=== PATIENT | male | born 1995 | race Caucasian/White ===

== ENCOUNTER 2024-03-08 16:55 | Emergency (ER) | payer MEDICARE, MEDICAID, SELFPAY ==
[2024-03-08 17:08] VITALS: BP 122/80; BP 149/99; PULSE 100; PULSE 79; RESP 24; TEMP 37; O2SAT 100; O2SAT 99; BMI 21.0
--- NOTE | 2024-03-08 17:13 | ECG_ITS ---
Test Reason : SEIZURE Blood Pressure : / mmHG Vent. Rate : 077 BPM Atrial Rate : 077 BPM P-R Int : 132 ms QRS Dur : 110 ms QT Int : 350 ms P-R-T Axes : 075 086 070 degrees QTc Int : 396 ms Normal sinus rhythm with sinus arrhythmia Normal ECG No previous ECGs available Referred By: Jenna Montes De Oca Electronically Signed By:THERESE BROCK MD
--- NOTE | 2024-03-08 17:14 | ED.GENADULT ---
HPI - General Adult General Chief complaint: Seizure Stated complaint: wit seizures from [facility] Time Seen by Provider: 03/08/24 17:13 History of Present Illness HPI narrative: 28 y/o M patient; PMH epilepsy on Keppra, Lamotrigine, and Buspirone; presents as transfer from [facility] with report of witnessed generalized seizure activity. The patient states he has had seizures since he was an . He reports he has not taken his medications for the last one week due to increased depression. His last seizure was yesterday and he was taken to a hospital who gave him his yesterday morning dose of medications but after his discharge he did not take his medications again. He arrives with full bottles of his medications in his possession. He denies any active suicidal or homicidal ideation. He reports for the last one week he has been using every drug you can think of but denies ever using IV drugs. Related Data Allergies Allergy/AdvReac Type Severity Reaction Status Date / Time No Known Allergies Allergy Verified 03/08/24 17:09 Review of Systems Review of Systems: Yes all other systems are reviewed and are negative Neurologic: Denies Sensory deficit (Neuro) [facility] Past Medical History Attestation statement: The following information was validated with the patient. Source: unable to obtain Social History Social History Advance Directives: No Advance Directives Information Provided: Yes Do you have a plan to hurt others: No Plan Physical Exam ED Vital Signs: Vital Signs - 24 hr 03/08/24 17:08 03/08/24 18:12 Temperature 98.6 F Pulse Rate 100 75 Respiratory Rate 24 H 16 Blood Pressure 149/99 H 119/75 Pulse Oximetry 100 99 Oxygen Delivery Method Room Air BMI result Body Mass Index 21.0 Patient is afebrile and hemodynamically stable, mildly tachypnic. Const General: cooperative, comfortable and no acute distress Orientation/consciousness: patient oriented x3 HENMT Head: Yes normal to inspection and Yes atraumatic Eyes General: appearance normal, both eyes and all related structures Pupils: Equal, round and reactive pupils present Neck Neck: Yes normal visual inspection, Yes full ROM, Yes supple and No tender Chest Chest palpation & inspection: normal inspection of the chest and normal palpation of entire chest wall Resp Effort & Inspection: normal respiratory effort, able to speak in complete sentences and no respiratory distress Auscultation: clear to auscultation bilaterally Cardio Rate: regular rate Rhythm: regular rhythm Peripheral pulses: Peripheral pulses 2+ throughout GI Inspection: Yes normal to inspection Palpation (GI): Soft to palpation, not firm, nontender, no guarding and not rigid Auscultation: normal bowel sounds Neuro General: patient oriented x3 Cranial nerves: Yes CN's II-XII intact bilaterally and Yes Equal, round and reactive pupils present Cognition (Neuro): normal cognition Gait exam (Neuro): Normal gait present Motor exam (neuro): 5/5 motor strength present throughout Sensory Exam: No Sensory deficit (Neuro) Course Course Course Narrative: Patient is afebrile and hemodynamically stable. Will plan for a period of observation. Provided home medications. Glucose appropriate. Observed for 2 hours without further seizure activity. Plan: Discharge back to [facility] Condition: Stable Medications Administered Discontinued Medications Generic Name Dose Route Start Last Admin Trade Name Freq PRN Reason Stop Dose Admin Buspirone HCl 10 mg 03/08/24 17:18 03/08/24 17:24 Buspirone Hcl 10 Mg Tablet PO 03/08/24 17:19 10 mg ONCE ONE Administration Lamotrigine 400 mg 03/08/24 17:18 03/08/24 17:24 Lamotrigine 100 Mg Tablet PO 03/08/24 17:19 400 mg ONCE ONE Administration Levetiracetam 1,000 mg 03/08/24 17:18 03/08/24 17:24 Levetiracetam 1,000 Mg Tablet PO 03/08/24 17:19 1,000 mg ONCE ONE Administration Medical Decision Making Lab Data Labs: Lab Results 03/08/24 Range/Units 17:18 POC Glucose 117 H (60-115) mg/dL Independent Interpretation I performed an independent interpretation of an: EKG Interpretation: NSR 77BPM without ischemic changes, QRS 110. No prior for comparison. Discharge Plan Discharge Clinical Impression: Epileptic seizure Patient Disposition: Xfer Other Transfer Details: [facility] Instructions: Epilepsy (DC) Additional Instructions: As we discussed, you were seen today after a seizure that occurred as you had not taken your seizure medications in the last 1 week. We gave you a dose of your seizure medications tonight and you should start taking them as prescribed starting tomorrow morning (03/09/2024). Follow up with your PCP within the next 2 - 3 days for re-evaluation. Print Language: [place] Citizen
[2024-03-08 17:22] LABS: Glucose, Whole Blood 117 mg/dL (60-115)
[2024-03-08] MEDS: levETIRAcetam 1,000 MG TABLET 1000 MG PO (17:24)
[2024-03-08] MEDS: busPIRone HCl 10 MG TABLET PO (17:24)
[2024-03-08] MEDS: lamoTRIgine 100 MG TABLET 400 MG PO (17:24)
[2024-03-08 18:12] VITALS: BP 119/75; PULSE 75; RESP 16; O2SAT 99
[2024-03-08 19:11] VITALS: BP 116/77; PULSE 66; RESP 16; TEMP 37.1; O2SAT 99
--- NOTE | 2024-03-08 19:15 | PC.NURSE ---
this rn assumed care of pt, pt resting in stretcher no acute distress noted. report given to bill RN, this rn noted pt to not come with section papers, attempted to reach someone from [facility] to get it faxed, unable to do this at this time.
--- NOTE | 2024-03-08 19:33 | MHC.EDTECH ---
No sect. 21 found in pt's chart to go back to [facility]. RN called to give report but was told they would not be able to fax the section. I called the supervisor telephone information at [facility] @[phone] and she informed me that she will send over the section 21.
--- NOTE | 2024-03-08 20:30 | PC.NURSE ---
ems at bedside for transport back to [facility]. pt medications given to ems.
[2024-03-08 20:31] VITALS: BP 116/77; PULSE 66; RESP 16; TEMP 37.1; O2SAT 99
== END 2024-03-08 20:31 | disposition other institution (70) ==
PROVIDERS: Emergency Provider Emergency Medicine
DX: G40.909 Epilepsy, unspecified, not intractable, without status epilepticus (principal)
CPT/HCPCS: 82947; 93005; 99283; 99284

== ENCOUNTER → 2024-03-08 17:13 | Outpatient (BNV) | payer MEDICARE, SELFPAY | PROVIDERS: Emergency Provider Emergency Medicine; Visit Provider Internal Medicine Cardiovascular Disease | DX: R56.9 Unspecified convulsions (principal); R94.31 Abnormal electrocardiogram [ECG] [EKG] | CPT/HCPCS: 93010 ==

== ENCOUNTER 2024-03-09 02:25 | Emergency (ER) | payer OTHER, MEDICARE, SELFPAY ==
[2024-03-09 02:38] VITALS: BP 134/98; PULSE 83
[2024-03-09 02:40] VITALS: BP 127/83; PULSE 78; RESP 16; TEMP 36.9; O2SAT 98; BMI 19.9
--- NOTE | 2024-03-09 02:54 | ECG_ITS ---
Test Reason : SEIZURES Blood Pressure : / mmHG Vent. Rate : 082 BPM Atrial Rate : 082 BPM P-R Int : 138 ms QRS Dur : 100 ms QT Int : 350 ms P-R-T Axes : 081 093 071 degrees QTc Int : 408 ms Normal sinus rhythm Rightward axis Borderline ECG When compared with ECG of 08-MAR-2024 17:26, ST no longer elevated in Anterior leads Nonspecific T wave abnormality no longer evident in Anterior leads Referred By: Georgie Winters Electronically Signed By:THERESE BROCK MD
[2024-03-09] MEDS: 0.9 % Sodium Chloride 1,000 ML 999 ML IVCONT (03:18)
[2024-03-09 03:20] LABS: MANUAL DIFF FLAG NO
[2024-03-09 03:27] LABS: Basophils Percent Auto 0.6 % (0-2); Eosinophils Absolute Auto 0.1 X10*3/uL (0.0-0.4); Eosinophils Percent Auto 1.4 % (0-4); Hematocrit 38.6 % (42.0-52.0); Hemoglobin 13.3 g/dl (14.0-18.0); Imm Gran Abs Auto 0.02 X10*3/uL (0.00-0.03); Imm Gran Pct Auto 0.4 % (0.0-0.4); Lymphocytes Absolute Auto 1.2 X10*3/uL (1.2-4.9); Lymphocytes Percent Auto 24.1 % (20-40); Mean Corpuscular HGB Conc 34.5 g/dl (31.0-36.0); Mean Corpuscular Hemoglobin 30.1 pg (27.0-33.0); Mean Corpuscular Volume 87.3 fL (80.0-98.0); Mean Platelet Volume 10.9 fL (9.4-12.4); Monocytes Absolute Auto 0.4 X10*3/uL (0.1-1.2); Monocytes Percent Auto 7.8 % (2-11); Neutrophils Absolute Auto 3.2 x10*3/uL (2.0-8.3); Neutrophils Percent Auto 65.7 % (45-73); Platelet Count 145 X10*3/uL (160-400); Red Blood Count 4.42 X10*6/uL (4.60-5.80); Red Cell Distribution Width 12.1 % (11.0-16.0); White Blood Count 4.9 X10*3/uL (4.8-10.8)
[2024-03-09 03:33] LABS: INTERNATIONAL NORM RATIO 1.2 (0.9-1.1); Prothrombin Time 14.5 SEC (11.1-13.3)
[2024-03-09 03:36] LABS: Lactic Acid 0.9 mmol/L (0.5-2.0)
[2024-03-09 03:46] LABS: Alanine Aminotransferase 20 U/L (0-40); Albumin Level 3.8 g/dL (3.5-5.0); Alkaline Phosphatase 61 U/L (39-117); Anion Gap 11 (12-20); Aspartate Amino Transferase 23 U/L (5-37); Bilirubin Direct < 0.2 mg/dL (0.0-0.5); Bilirubin Total 0.2 mg/dL (0.0-1.0); Blood Urea Nitrogen 12 mg/dL (9-16); Calcium 8.8 mg/dL (8.4-10.2); Carbon Dioxide 24 mmol/L (22-29); Chloride 112 mmol/L (96-108); Creatinine Clr Calc Pharmacy 107.8; Estimated Glomerular Filt Rate > 60; Ethanol < 10 mg/dL; Glucose Random 102 mg/dL (60-115); Magnesium 1.9 mg/dL (1.6-2.6); Potassium 3.5 mmol/L (3.3-5.1); Sodium 143 mmol/L (135-145); Total Protein 6.6 g/dL (6.5-8.0); Troponin-I High Sensitivity < 2.7 ng/L (<3.5-35.0)
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
[2024-03-09] MEDS: levETIRAcetam in NaCl (iso-os) 1,500 MG/100 ML PIGGYBACK 400 MG IV (04:27)
--- NOTE | 2024-03-09 04:35 | MHC.EDTECH ---
@04:34 CALL PLACED TO [facility] FOR TX BACK TO [facility] [address] [place] ANSWERS, TAKES PT INFO AND GIVES 1 HOUR ETA
--- NOTE | 2024-03-09 05:41 | MHC.EDTECH ---
@ 5:42 CALL PLACED TO [facility] THE 1 HOUR JEANA HAS PASSED FOR THE LAWN SERVICE WORKER OF THIS PT SHANTI ANSWERS, STATES WAITING FOR A UNIT TO CLEAR UP @ THIS TIME
--- NOTE | 2024-03-09 06:29 | MHC.EDTECH ---
@9858 3RD CALL PLACED TO [facility] TO CHECK ON ETA FOR THIS PT TO GO BACK TO INPT PSYCH FAC[facility] ON [address] [place] ANSWERS, STATES JUST ABOUT TO DISPATCH THEM OUT
[2024-03-09 06:45] VITALS: BP 127/83; PULSE 78; RESP 14; TEMP 36.9; O2SAT 98
== END 2024-03-09 06:53 ==
PROVIDERS: Emergency Provider Emergency Medicine
DX: R56.9 Unspecified convulsions (principal)
CPT/HCPCS: 36415; 80048; 80076; 80307; 83605; 83735; 84484; 85025; 85610; 93005; 96361; 96365; 99284; 99285; J1953

== ENCOUNTER → 2024-03-09 02:54 | Outpatient (BNV) | payer MEDICARE, SELFPAY | PROVIDERS: Emergency Provider Emergency Medicine; Visit Provider Internal Medicine Cardiovascular Disease | DX: R56.9 Unspecified convulsions (principal); R94.31 Abnormal electrocardiogram [ECG] [EKG] | CPT/HCPCS: 93010 ==

== ENCOUNTER 2024-06-13 00:44 | Inpatient (IN) | payer MEDICARE, OTHER, MEDICAID, SELFPAY ==
--- NOTE | ~2024-06-13 | XR_ITS ---
EXAMINATION: XR HAND/WRIST, RIGHT CLINICAL INFORMATION: Acute trauma to the third finger COMPARISON: None TECHNIQUE: PA, lateral, and oblique views of the right hand and wrist. FINDINGS: No evidence of acute fractures in the second finger. There is healed fracture deformity of the base of the fourth and fifth metatarsal carpal bones of indeterminate age. Soft tissues unremarkable. XR/XR hand wrist RT IMPRESSION: No acute fractures seen specifically in the third finger on the right
[2024-06-13 02:13] VITALS: BP 138/100; PULSE 107; RESP 18; TEMP 36.7; O2SAT 98
[2024-06-13 02:14] VITALS: BMI 21.0
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
[2024-06-13] MEDS: Nicotine Polacrilex 2 MG GUM BUCCAL ×2 (06:42→07:59)
[2024-06-13] MEDS: hydrOXYzine HCL 25 MG TABLET PO (07:59)
[2024-06-13 08:00] VITALS: BP 133/94; PULSE 94; RESP 19; TEMP 36.6; O2SAT 98
[2024-06-13] MEDS: Acetaminophen 325 MG TABLET 650 MG PO (08:47)
[2024-06-13] MEDS: OLANZapine ODT 10 MG TAB.RAPDIS TRANSLINGU (08:48)
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
[2024-06-13] MEDS: Nicotine 21 MG PATCH.TD24 TRANSDERMA (10:48)
[2024-06-13] MEDS: LORazepam 1 MG TABLET 2 MG PO (10:49)
[2024-06-13] MEDS: Benztropine Mesylate 0.5 MG TABLET PO (10:49)
[2024-06-13] MEDS: HaloperidoL 5 MG TABLET PO (10:50)
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
[2024-06-13] MEDS: lamoTRIgine 100 MG TABLET 400 MG PO ×2 (14:38→21:13)
[2024-06-13 20:00] VITALS: BP 124/71; PULSE 79; RESP 18; TEMP 36.8; O2SAT 96
[2024-06-13] MEDS: traZODone HCL 50 MG TABLET PO (21:13)
[2024-06-13] MEDS: QUEtiapine Fumarate 400 MG TABLET 800 MG PO (21:13)
[2024-06-13] MEDS: levETIRAcetam 250 MG TABLET 750 MG PO (21:13)
[2024-06-14] MEDS: LORazepam 1 MG TABLET 2 MG PO ×2 (04:24→21:38)
[2024-06-14] MEDS: Nicotine Polacrilex 2 MG GUM BUCCAL ×2 (04:24→16:58)
[2024-06-14 08:48] LABS: Estimated Average Glucose 97 mg/dL
[2024-06-14] MEDS: levETIRAcetam 250 MG TABLET 750 MG PO ×2 (08:51→21:20)
[2024-06-14] MEDS: lamoTRIgine 100 MG TABLET 400 MG PO ×2 (08:51→21:20)
[2024-06-14 08:53] VITALS: BP 123/77; PULSE 122; RESP 16; TEMP 36.3; O2SAT 100
[2024-06-14 08:57] LABS: Alanine Aminotransferase 77 U/L (0-40); Albumin Level 4.3 g/dL (3.5-5.0); Alkaline Phosphatase 85 U/L (39-117); Anion Gap 12 (12-20); Aspartate Amino Transferase 42 U/L (5-37); Bilirubin Total 0.3 mg/dL (0.0-1.0); Blood Urea Nitrogen 15 mg/dL (9-16); Calcium 10.1 mg/dL (8.4-10.2); Carbon Dioxide 31 mmol/L (22-29); Chloride 103 mmol/L (96-108); Cholesterol 187 mg/dL (<200); Creatinine Clr Calc Pharmacy 126.7; Estimated Glomerular Filt Rate > 60; Glucose Fasting 95 mg/dL (60-99); HDL Cholesterol 59 mg/dL (>40); LDL Cholesterol Calculated 118 mg/dL (<100); Potassium 4.8 mmol/L (3.3-5.1); Sodium 141 mmol/L (135-145); Total Protein 7.6 g/dL (6.5-8.0); Triglycerides 54 mg/dL (<150)
[2024-06-14 09:26] LABS: Folate 7.4 ng/mL (> or = 4.0); Vitamin B12 871 pg/mL (200-900)
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
[2024-06-14 20:00] VITALS: BP 110/62; PULSE 83; RESP 18; TEMP 36.9; O2SAT 98
[2024-06-14] MEDS: busPIRone HCl 10 MG TABLET PO (21:19)
[2024-06-14] MEDS: QUEtiapine Fumarate 400 MG TABLET 800 MG PO (21:20)
[2024-06-14] MEDS: traZODone HCL 50 MG TABLET PO (21:21)
[2024-06-14] MEDS: hydrOXYzine HCL 25 MG TABLET PO (21:21)
[2024-06-15] MEDS: busPIRone HCl 10 MG TABLET PO ×3 (08:32→21:08)
[2024-06-15] MEDS: lamoTRIgine 100 MG TABLET 400 MG PO ×2 (08:32→21:08)
[2024-06-15] MEDS: levETIRAcetam 250 MG TABLET 750 MG PO ×2 (08:32→21:08)
[2024-06-15] MEDS: guanFACINE HCl ER 1 MG TAB.ER.24H PO (08:32)
[2024-06-15 09:15] VITALS: BP 110/58; PULSE 82; RESP 16; TEMP 36.4; O2SAT 98
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
[2024-06-15] MEDS: Nicotine Polacrilex 2 MG GUM BUCCAL ×2 (18:58→21:08)
[2024-06-15] MEDS: diphenhydrAMINE HCL 25 MG CAPSULE 50 MG PO (19:59)
[2024-06-15] MEDS: HaloperidoL 5 MG TABLET PO (19:59)
[2024-06-15 20:00] VITALS: BP 156/93; PULSE 99; RESP 18; TEMP 36.7; O2SAT 99
[2024-06-15] MEDS: QUEtiapine Fumarate 400 MG TABLET 800 MG PO (21:08)
[2024-06-15] MEDS: traZODone HCL 50 MG TABLET PO (21:52)
[2024-06-15] MEDS: LORazepam 1 MG TABLET 2 MG PO (21:52)
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
[2024-06-16] MEDS: guanFACINE HCl ER 1 MG TAB.ER.24H PO (09:05)
[2024-06-16] MEDS: lamoTRIgine 100 MG TABLET 400 MG PO ×2 (09:05→20:25)
[2024-06-16] MEDS: levETIRAcetam 250 MG TABLET 750 MG PO ×2 (09:05→20:25)
[2024-06-16] MEDS: busPIRone HCl 10 MG TABLET PO ×3 (09:05→20:25)
[2024-06-16 09:08] VITALS: BP 122/75; PULSE 89; RESP 16; TEMP 36.4; O2SAT 99
[2024-06-16] MEDS: LORazepam 1 MG TABLET 2 MG PO ×2 (17:45→23:08)
[2024-06-16] MEDS: HaloperidoL 5 MG TABLET PO ×2 (17:45→23:08)
[2024-06-16 20:00] VITALS: BP 125/57; PULSE 83; RESP 18; TEMP 36.6; O2SAT 98
[2024-06-16] MEDS: QUEtiapine Fumarate 400 MG TABLET 800 MG PO (20:25)
[2024-06-16] MEDS: diphenhydrAMINE HCL 25 MG CAPSULE 50 MG PO (23:08)
[2024-06-16 23:13] VITALS: BP 116/66; PULSE 98; RESP 14
[2024-06-17 08:00] VITALS: BP 115/77; PULSE 76; TEMP 36.8; O2SAT 99
[2024-06-17] MEDS: lamoTRIgine 100 MG TABLET 400 MG PO ×2 (09:39→21:07)
[2024-06-17] MEDS: busPIRone HCl 10 MG TABLET PO ×3 (09:40→21:06)
[2024-06-17] MEDS: levETIRAcetam 250 MG TABLET 750 MG PO ×2 (09:40→21:06)
[2024-06-17] MEDS: guanFACINE HCl ER 1 MG TAB.ER.24H PO (09:40)
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
[2024-06-17 20:00] VITALS: PULSE 87; RESP 18; TEMP 37.1
[2024-06-17] MEDS: QUEtiapine Fumarate 400 MG TABLET 800 MG PO (21:06)
[2024-06-17] MEDS: HaloperidoL 5 MG TABLET PO (21:07)
[2024-06-17] MEDS: LORazepam 1 MG TABLET 2 MG PO (21:07)
[2024-06-17] MEDS: diphenhydrAMINE HCL 25 MG CAPSULE 50 MG PO (21:07)
[2024-06-18] MEDS: diphenhydrAMINE HCL 25 MG CAPSULE 50 MG PO (01:28)
[2024-06-18 08:00] VITALS: BP 112/61; PULSE 83; RESP 17; TEMP 36.7; O2SAT 97
[2024-06-18] MEDS: levETIRAcetam 250 MG TABLET 750 MG PO ×2 (08:53→20:43)
[2024-06-18] MEDS: busPIRone HCl 10 MG TABLET PO ×3 (08:54→20:43)
[2024-06-18] MEDS: guanFACINE HCl ER 1 MG TAB.ER.24H PO (08:54)
[2024-06-18] MEDS: lamoTRIgine 100 MG TABLET 400 MG PO ×2 (08:54→20:43)
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
[2024-06-18] MEDS: HaloperidoL 5 MG TABLET PO (17:56)
[2024-06-18] MEDS: LORazepam 1 MG TABLET 2 MG PO (17:56)
--- NOTE | 2024-06-18 18:19 | PC.NURSE ---
Pt had an episode of emotional dysregulation this evening and laid on the ground, clenching his fists, and breathing fast. He reports he does this when he has flashbacks and is triggered. TW spoke to him in a calm and reassuring voice enforcing that he is safe and not in any danger. He was redirectable and accepting of prn Ativan and Haldol. He was able to calm down and maintain behavioral control. he went on to sit in group room A and watched TV in rocking chair. Blankets offered to him for weight/soothing.
[2024-06-18 20:00] VITALS: BP 145/97; PULSE 84; RESP 18; TEMP 36.4; O2SAT 99
[2024-06-18] MEDS: QUEtiapine Fumarate 400 MG TABLET 800 MG PO (20:43)
[2024-06-19 08:27] VITALS: BP 126/68; PULSE 75; RESP 18; TEMP 36.5; O2SAT 97
[2024-06-19] MEDS: lamoTRIgine 100 MG TABLET 400 MG PO ×2 (09:30→21:52)
[2024-06-19] MEDS: guanFACINE HCl ER 1 MG TAB.ER.24H PO (09:30)
[2024-06-19] MEDS: levETIRAcetam 250 MG TABLET 750 MG PO ×2 (09:30→21:52)
[2024-06-19] MEDS: busPIRone HCl 10 MG TABLET PO ×3 (09:30→21:52)
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
[2024-06-19] MEDS: HaloperidoL 5 MG TABLET PO (17:19)
[2024-06-19] MEDS: Nicotine Polacrilex 2 MG GUM BUCCAL (17:19)
[2024-06-19] MEDS: LORazepam 1 MG TABLET 2 MG PO (17:19)
[2024-06-19] MEDS: diphenhydrAMINE HCL 25 MG CAPSULE 50 MG PO (17:31)
[2024-06-19 20:00] VITALS: BP 141/81; PULSE 110; RESP 18; TEMP 36.4; O2SAT 99
[2024-06-19] MEDS: QUEtiapine Fumarate 400 MG TABLET 800 MG PO (21:52)
[2024-06-20 07:00] VITALS: BMI 22.9
[2024-06-20 08:00] VITALS: BP 144/67; PULSE 71; RESP 19; TEMP 36.4; O2SAT 98
[2024-06-20] MEDS: busPIRone HCl 10 MG TABLET PO ×3 (08:50→21:05)
[2024-06-20] MEDS: levETIRAcetam 250 MG TABLET 750 MG PO ×2 (08:50→21:05)
[2024-06-20] MEDS: guanFACINE HCl ER 1 MG TAB.ER.24H PO (08:50)
[2024-06-20] MEDS: lamoTRIgine 100 MG TABLET 400 MG PO ×2 (11:31→21:05)
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
[2024-06-20] MEDS: HaloperidoL 5 MG TABLET PO (18:10)
[2024-06-20] MEDS: LORazepam 1 MG TABLET 2 MG PO (18:10)
[2024-06-20] MEDS: hydrOXYzine HCL 25 MG TABLET PO (18:10)
[2024-06-20] MEDS: diphenhydrAMINE HCL 25 MG CAPSULE 50 MG PO (18:44)
[2024-06-20 20:00] VITALS: BP 158/83; PULSE 93; RESP 16; TEMP 36.4; O2SAT 100
[2024-06-20] MEDS: traZODone HCL 50 MG TABLET PO (21:05)
[2024-06-20] MEDS: QUEtiapine Fumarate 400 MG TABLET 800 MG PO (21:05)
[2024-06-21 08:00] VITALS: BP 119/60; PULSE 79; RESP 18; TEMP 36.4; O2SAT 97
[2024-06-21] MEDS: levETIRAcetam 250 MG TABLET 750 MG PO ×2 (08:58→20:16)
[2024-06-21] MEDS: lamoTRIgine 100 MG TABLET 400 MG PO ×2 (08:58→20:17)
[2024-06-21] MEDS: guanFACINE HCl ER 1 MG TAB.ER.24H PO (08:58)
[2024-06-21] MEDS: busPIRone HCl 10 MG TABLET PO ×3 (08:58→20:16)
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
[2024-06-21] MEDS: Nicotine Polacrilex 2 MG GUM BUCCAL ×2 (19:08→22:11)
[2024-06-21] MEDS: HaloperidoL 5 MG TABLET PO (19:12)
[2024-06-21] MEDS: LORazepam 1 MG TABLET 2 MG PO ×2 (19:12→20:31)
[2024-06-21] MEDS: diphenhydrAMINE HCL 25 MG CAPSULE 50 MG PO (19:12)
[2024-06-21 20:00] VITALS: BP 135/64; PULSE 78; RESP 16; TEMP 36.3; O2SAT 96
[2024-06-21] MEDS: QUEtiapine Fumarate 400 MG TABLET 800 MG PO (20:16)
[2024-06-21] MEDS: OLANZapine ODT 10 MG TAB.RAPDIS 20 MG TRANSLINGU (21:00)
[2024-06-22 07:52] VITALS: BP 110/58; PULSE 85; RESP 18; TEMP 36.3; O2SAT 97
[2024-06-22] MEDS: levETIRAcetam 250 MG TABLET 750 MG PO ×2 (08:21→19:33)
[2024-06-22] MEDS: busPIRone HCl 10 MG TABLET PO ×3 (08:21→19:33)
[2024-06-22] MEDS: lamoTRIgine 100 MG TABLET 400 MG PO ×2 (08:21→19:33)
[2024-06-22] MEDS: guanFACINE HCl ER 1 MG TAB.ER.24H PO (08:21)
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
[2024-06-22] MEDS: Nicotine Polacrilex 2 MG GUM BUCCAL ×2 (17:51→20:04)
[2024-06-22] MEDS: HaloperidoL 5 MG TABLET PO (18:41)
[2024-06-22] MEDS: LORazepam 1 MG TABLET 2 MG PO (18:41)
[2024-06-22 18:54] VITALS: BP 174/100; PULSE 112
[2024-06-22] MEDS: diphenhydrAMINE HCL 25 MG CAPSULE 50 MG PO (19:33)
[2024-06-22] MEDS: QUEtiapine Fumarate 400 MG TABLET 800 MG PO (19:33)
[2024-06-22 20:00] VITALS: BP 176/98; PULSE 115; RESP 107; TEMP 36.7; O2SAT 99
[2024-06-23 07:35] VITALS: BP 110/57; PULSE 87; RESP 18; TEMP 36.3; O2SAT 98
[2024-06-23] MEDS: guanFACINE HCl ER 1 MG TAB.ER.24H PO (08:18)
[2024-06-23] MEDS: levETIRAcetam 250 MG TABLET 750 MG PO ×2 (08:19→20:00)
[2024-06-23] MEDS: busPIRone HCl 10 MG TABLET PO ×3 (08:19→20:01)
[2024-06-23] MEDS: lamoTRIgine 100 MG TABLET 400 MG PO ×2 (08:19→20:01)
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
[2024-06-23] MEDS: Nicotine Polacrilex 2 MG GUM BUCCAL ×2 (12:07→21:08)
[2024-06-23] MEDS: LORazepam 1 MG TABLET 2 MG PO ×2 (13:39→20:00)
[2024-06-23 20:00] VITALS: BP 173/106; PULSE 106; RESP 18; TEMP 2.6; TEMP 36.7; O2SAT 100
[2024-06-23] MEDS: HaloperidoL 5 MG TABLET PO (20:00)
[2024-06-23] MEDS: QUEtiapine Fumarate 400 MG TABLET 800 MG PO (20:01)
[2024-06-23 20:45] VITALS: BP 142/100; PULSE 91
[2024-06-23] MEDS: cloNIDine HCL 0.1 MG TABLET PO (20:58)
[2024-06-24 08:00] VITALS: BP 117/58; PULSE 83; RESP 16; TEMP 36.3; O2SAT 97
[2024-06-24] MEDS: lamoTRIgine 100 MG TABLET 400 MG PO ×2 (09:17→20:23)
[2024-06-24] MEDS: levETIRAcetam 250 MG TABLET 750 MG PO ×2 (09:18→20:23)
[2024-06-24] MEDS: guanFACINE HCl ER 1 MG TAB.ER.24H PO (09:18)
[2024-06-24] MEDS: diphenhydrAMINE HCL 25 MG CAPSULE 50 MG PO ×2 (09:18→19:21)
[2024-06-24] MEDS: busPIRone HCl 10 MG TABLET PO ×3 (09:18→20:24)
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
[2024-06-24] MEDS: Nicotine Polacrilex 2 MG GUM BUCCAL ×2 (14:50→22:06)
[2024-06-24 19:20] VITALS: BP 163/103
[2024-06-24] MEDS: hydrOXYzine HCL 25 MG TABLET PO (19:20)
[2024-06-24] MEDS: LORazepam 1 MG TABLET 2 MG PO (19:20)
[2024-06-24] MEDS: cloNIDine HCL 0.1 MG TABLET PO (19:20)
[2024-06-24] MEDS: HaloperidoL 5 MG TABLET PO (19:21)
[2024-06-24 20:00] VITALS: BP 173/103; PULSE 111; RESP 18; O2SAT 99
[2024-06-24] MEDS: QUEtiapine Fumarate 400 MG TABLET 800 MG PO (20:24)
[2024-06-24] MEDS: traZODone HCL 50 MG TABLET PO (21:57)
[2024-06-25] MEDS: guanFACINE HCl ER 1 MG TAB.ER.24H PO (09:13)
[2024-06-25] MEDS: levETIRAcetam 250 MG TABLET 750 MG PO ×2 (09:13→20:11)
[2024-06-25] MEDS: lamoTRIgine 100 MG TABLET 400 MG PO ×2 (09:13→20:10)
[2024-06-25] MEDS: busPIRone HCl 10 MG TABLET PO ×3 (09:14→20:12)
[2024-06-25 09:16] VITALS: BP 119/65; PULSE 75; RESP 16; TEMP 36.6; O2SAT 98
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
[2024-06-25] MEDS: LORazepam 1 MG TABLET 2 MG PO (18:11)
[2024-06-25] MEDS: HaloperidoL 5 MG TABLET PO (18:11)
[2024-06-25 20:00] VITALS: BP 157/98; PULSE 100; RESP 18; TEMP 36.5; O2SAT 96
[2024-06-25] MEDS: traZODone HCL 50 MG TABLET PO (20:10)
[2024-06-25 20:11] VITALS: BP 170/110
[2024-06-25] MEDS: QUEtiapine Fumarate 400 MG TABLET 800 MG PO (20:11)
[2024-06-25] MEDS: diphenhydrAMINE HCL 25 MG CAPSULE 50 MG PO (20:11)
[2024-06-25] MEDS: cloNIDine HCL 0.1 MG TABLET PO (20:11)
[2024-06-25] MEDS: Nicotine Polacrilex 2 MG GUM BUCCAL (20:12)
[2024-06-25] MEDS: hydrOXYzine HCL 25 MG TABLET PO (20:12)
[2024-06-26 08:26] VITALS: BP 106/53; PULSE 72; RESP 16; TEMP 36.9; O2SAT 96
[2024-06-26] MEDS: busPIRone HCl 10 MG TABLET PO ×3 (08:53→21:34)
[2024-06-26] MEDS: guanFACINE HCl ER 1 MG TAB.ER.24H PO (08:53)
[2024-06-26] MEDS: levETIRAcetam 250 MG TABLET 750 MG PO ×2 (08:53→21:33)
[2024-06-26] MEDS: lamoTRIgine 100 MG TABLET 400 MG PO ×2 (08:53→21:33)
[2024-06-26 15:47] VITALS: BP 122/70
[2024-06-26] MEDS: cloNIDine HCL 0.1 MG TABLET PO (15:47)
[2024-06-26] MEDS: LORazepam 1 MG TABLET 2 MG PO (17:32)
[2024-06-26] MEDS: HaloperidoL 5 MG TABLET PO (17:33)
[2024-06-26] MEDS: diphenhydrAMINE HCL 25 MG CAPSULE 50 MG PO (17:34)
[2024-06-26 18:03] VITALS: BP 133/83; PULSE 89
[2024-06-26] MEDS: Nicotine Polacrilex 2 MG GUM BUCCAL ×2 (19:50→21:45)
[2024-06-26 20:00] VITALS: BP 136/92; PULSE 100; RESP 16; TEMP 36.4; O2SAT 100
[2024-06-26] MEDS: QUEtiapine Fumarate 400 MG TABLET 800 MG PO (21:34)
[2024-06-26] MEDS: traZODone HCL 50 MG TABLET PO (21:34)
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
[2024-06-27 07:00] VITALS: BMI 23.4
[2024-06-27 08:00] VITALS: BP 109/59; PULSE 76; RESP 20; TEMP 36.9; O2SAT 97
[2024-06-27] MEDS: busPIRone HCl 10 MG TABLET PO ×3 (08:37→20:27)
[2024-06-27] MEDS: guanFACINE HCl ER 1 MG TAB.ER.24H PO (08:37)
[2024-06-27] MEDS: levETIRAcetam 250 MG TABLET 750 MG PO ×2 (08:38→20:27)
[2024-06-27] MEDS: lamoTRIgine 100 MG TABLET 400 MG PO ×2 (08:38→20:27)
[2024-06-27 15:02] VITALS: BP 129/67; PULSE 79; O2SAT 97
[2024-06-27] MEDS: HaloperidoL 5 MG TABLET PO ×2 (15:05→16:54)
[2024-06-27] MEDS: cloNIDine HCL 0.1 MG TABLET PO ×2 (15:05→19:06)
[2024-06-27] MEDS: Nicotine Polacrilex 2 MG GUM BUCCAL (15:33)
[2024-06-27] MEDS: LORazepam 1 MG TABLET 2 MG PO (16:54)
[2024-06-27] MEDS: diphenhydrAMINE HCL 25 MG CAPSULE 50 MG PO (16:54)
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
[2024-06-27 19:06] VITALS: BP 166/99
[2024-06-27] MEDS: hydrOXYzine HCL 25 MG TABLET PO (19:06)
[2024-06-27 20:00] VITALS: BP 165/94; PULSE 93; RESP 18; TEMP 36.1; O2SAT 98
[2024-06-27] MEDS: QUEtiapine Fumarate 400 MG TABLET 800 MG PO (20:27)
[2024-06-27] MEDS: traZODone HCL 50 MG TABLET PO (20:27)
[2024-06-28 08:20] VITALS: BP 108/59; PULSE 76; RESP 18; TEMP 36.8; O2SAT 98
[2024-06-28] MEDS: levETIRAcetam 250 MG TABLET 750 MG PO ×2 (08:45→21:33)
[2024-06-28] MEDS: busPIRone HCl 10 MG TABLET PO ×3 (08:45→21:33)
[2024-06-28] MEDS: guanFACINE HCl ER 1 MG TAB.ER.24H PO (08:45)
[2024-06-28] MEDS: lamoTRIgine 100 MG TABLET 400 MG PO ×2 (08:45→21:33)
[2024-06-28] MEDS: Nicotine Polacrilex 2 MG GUM BUCCAL ×2 (14:33→21:37)
[2024-06-28 16:14] VITALS: BP 121/74
[2024-06-28] MEDS: OLANZapine 10 MG TABLET PO (16:14)
[2024-06-28] MEDS: cloNIDine HCL 0.1 MG TABLET PO (16:14)
[2024-06-28] MEDS: HaloperidoL 5 MG TABLET PO (18:17)
[2024-06-28] MEDS: LORazepam 1 MG TABLET 2 MG PO (18:17)
[2024-06-28] MEDS: diphenhydrAMINE HCL 25 MG CAPSULE 50 MG PO (18:17)
[2024-06-28 20:00] VITALS: BP 137/94; PULSE 104; RESP 16; TEMP 36.9; O2SAT 99
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
[2024-06-28] MEDS: traZODone HCL 50 MG TABLET PO (21:33)
[2024-06-28] MEDS: QUEtiapine Fumarate 400 MG TABLET 800 MG PO (21:33)
[2024-06-29] MEDS: cloNIDine HCL 0.1 MG TABLET PO ×2 (09:12→16:17)
[2024-06-29] MEDS: lamoTRIgine 100 MG TABLET 400 MG PO ×2 (09:12→20:10)
[2024-06-29] MEDS: busPIRone HCl 10 MG TABLET PO ×3 (09:12→20:11)
[2024-06-29] MEDS: guanFACINE HCl ER 1 MG TAB.ER.24H PO (09:12)
[2024-06-29] MEDS: levETIRAcetam 250 MG TABLET 750 MG PO ×2 (09:12→20:11)
[2024-06-29 09:15] VITALS: BP 111/64; PULSE 79; RESP 16; TEMP 36.8; O2SAT 97
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
[2024-06-29] MEDS: OLANZapine 10 MG TABLET PO (16:17)
[2024-06-29 16:19] VITALS: BP 130/81; PULSE 78
[2024-06-29] MEDS: Nicotine Polacrilex 2 MG GUM BUCCAL (17:56)
[2024-06-29 19:55] VITALS: BP 141/86; PULSE 111
[2024-06-29 20:00] VITALS: BP 137/92; PULSE 99; TEMP 37.1; O2SAT 99
[2024-06-29] MEDS: QUEtiapine Fumarate 400 MG TABLET 800 MG PO (20:10)
[2024-06-29] MEDS: traZODone HCL 50 MG TABLET PO (20:10)
[2024-06-29] MEDS: HaloperidoL 5 MG TABLET PO (20:12)
[2024-06-29] MEDS: diphenhydrAMINE HCL 25 MG CAPSULE 50 MG PO (20:12)
[2024-06-29] MEDS: LORazepam 1 MG TABLET 2 MG PO (20:13)
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
[2024-06-30 08:44] VITALS: BP 123/73; PULSE 93; RESP 16; TEMP 36.8; O2SAT 99
[2024-06-30] MEDS: guanFACINE HCl ER 1 MG TAB.ER.24H PO (08:47)
[2024-06-30] MEDS: lamoTRIgine 100 MG TABLET 400 MG PO ×2 (08:47→20:35)
[2024-06-30] MEDS: busPIRone HCl 10 MG TABLET PO ×3 (08:47→20:36)
[2024-06-30] MEDS: cloNIDine HCL 0.1 MG TABLET PO ×2 (08:47→15:47)
[2024-06-30] MEDS: levETIRAcetam 250 MG TABLET 750 MG PO ×2 (08:47→20:36)
[2024-06-30 15:45] VITALS: BP 137/83; PULSE 80
[2024-06-30] MEDS: OLANZapine 10 MG TABLET PO (15:47)
[2024-06-30 20:00] VITALS: BP 127/82; PULSE 75; RESP 16; TEMP 36; O2SAT 97
[2024-06-30] MEDS: QUEtiapine Fumarate 400 MG TABLET 800 MG PO (20:36)
[2024-07-01 08:34] VITALS: BP 118/66; PULSE 75; RESP 18; TEMP 36.4; O2SAT 97
[2024-07-01] MEDS: lamoTRIgine 100 MG TABLET 400 MG PO ×2 (08:42→20:38)
[2024-07-01] MEDS: guanFACINE HCl ER 1 MG TAB.ER.24H PO (08:42)
[2024-07-01] MEDS: cloNIDine HCL 0.1 MG TABLET PO (08:42)
[2024-07-01] MEDS: busPIRone HCl 10 MG TABLET PO ×3 (08:42→20:39)
[2024-07-01] MEDS: levETIRAcetam 250 MG TABLET 750 MG PO ×2 (08:42→20:39)
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
[2024-07-01] MEDS: Nicotine Polacrilex 2 MG GUM BUCCAL ×2 (17:31→20:51)
[2024-07-01] MEDS: diphenhydrAMINE HCL 25 MG CAPSULE 50 MG PO (18:20)
[2024-07-01] MEDS: HaloperidoL 5 MG TABLET PO (18:21)
[2024-07-01] MEDS: LORazepam 1 MG TABLET 2 MG PO (18:21)
[2024-07-01 20:00] VITALS: BP 147/99; PULSE 95; TEMP 36.9; O2SAT 98
[2024-07-01] MEDS: QUEtiapine Fumarate 400 MG TABLET 800 MG PO (20:38)
[2024-07-01] MEDS: traZODone HCL 50 MG TABLET PO (20:38)
[2024-07-01 21:35] VITALS: BP 140/91; PULSE 97; TEMP 36.9
[2024-07-02 08:25] VITALS: BP 110/62; PULSE 85; RESP 16; TEMP 36.8; O2SAT 98
[2024-07-02] MEDS: lamoTRIgine 100 MG TABLET 400 MG PO (08:44)
[2024-07-02] MEDS: cloNIDine HCL 0.1 MG TABLET PO (08:44)
[2024-07-02] MEDS: guanFACINE HCl ER 1 MG TAB.ER.24H PO (08:45)
[2024-07-02] MEDS: busPIRone HCl 10 MG TABLET PO ×2 (08:45→14:03)
[2024-07-02] MEDS: levETIRAcetam 250 MG TABLET 750 MG PO (08:45)
[2024-07-02] MEDS: Nicotine Polacrilex 2 MG GUM BUCCAL ×3 (09:22→14:03)
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
[2024-07-02] MEDS: HaloperidoL 5 MG TABLET PO (14:29)
[2024-07-02] MEDS: LORazepam 1 MG TABLET 2 MG PO (14:30)
[2024-07-02] MEDS: diphenhydrAMINE HCL 25 MG CAPSULE PO (14:30)
== END 2024-07-02 14:31 | disposition home or self-care (01) | DRG 885 ==
PROVIDERS: Social Worker; Admitting Provider Psychiatry & Neurology Psychiatry; PCP Nurse Practitioner Family; Visit Provider Psychiatry & Neurology Psychiatry
DX: F25.0 Schizoaffective disorder, bipolar type (principal); F84.0 Autistic disorder; F43.10 Post-traumatic stress disorder, unspecified; F17.210 Nicotine dependence, cigarettes, uncomplicated; Z71.6 Tobacco abuse counseling; G40.909 Epilepsy, unspecified, not intractable, without status epilepticus; F90.9 Attention-deficit hyperactivity disorder, unspecified type; Z79.899 Other long term (current) drug therapy
CPT/HCPCS: 36415; 73110; 73130; 80053; 80061; 82607; 82746; 83036; 84443

== ENCOUNTER → 2024-06-13 00:44 | Outpatient (BNV) | payer MEDICARE, MEDICAID, SELFPAY | PROVIDERS: Admitting Provider Psychiatry & Neurology Psychiatry; PCP Nurse Practitioner Family; Visit Provider Psychiatry & Neurology Psychiatry | DX: F25.0 Schizoaffective disorder, bipolar type (principal); F84.0 Autistic disorder; F43.11 Post-traumatic stress disorder, acute; G40.909 Epilepsy, unspecified, not intractable, without status epilepticus | CPT/HCPCS: 99222; 99231; 99232; 99239 ==

== ENCOUNTER → 2024-06-13 00:44 | Outpatient (BNV) | payer MEDICARE, MEDICAID, SELFPAY | PROVIDERS: Admitting Provider Psychiatry & Neurology Psychiatry; PCP Nurse Practitioner Family; Visit Provider Student in an Organized Health Care Education/Training Program | DX: Z00.2 Encounter for examination for period of rapid growth in childhood (principal) | CPT/HCPCS: 99429 ==